=== PATIENT | female | born 1980 ===

== ENCOUNTER 2021-09-19 08:57 | Day surgery (SDC) | payer OTHER ==
[~2021-09-19 08:57] MED LIST: LEVOTHYROXINE25 MCG PO
== END 2021-09-19 16:10 | disposition home or self-care (01) ==
LOC: CIR.AMB 08:57
PROVIDERS: ATTEND Orthopaedic Surgery
DX: M77.12 Lateral epicondylitis, left elbow (principal); M84.822 Other disorders of continuity of bone, left humerus; M67.932 Unspecified disorder of synovium and tendon, left forearm; Z91.013 Allergy to seafood; Z86.16 Personal history of COVID-19; E03.9 Hypothyroidism, unspecified; F41.9 Anxiety disorder, unspecified; E66.9 Obesity, unspecified